=== PATIENT | female | born 1935 | race Caucasian/White ===

== ENCOUNTER 2018-01-11 21:49 | Inpatient (IN) | payer OTHER ==
[~2018-01-11] VITALS: Ht 162.6 cm; Wt 100.5 kg
[~2018-01-11 21:49] MED LIST: BENEFIBER152 GM PO; CALTRATE PLUS1 EACH PO; CENTRUM SILVER1 EAC4 PO; FISH OIL 1,0001 EAC7 PO; FOSAMAX70 MG PO; HYDROCHLOROTHIA25 MG PO; IRON325 M1 PO; LIVALO1 MG PO; LO-DOSE ASPIRIN81 M2 PO; METAMUCIL PLUS1 EACH PO; OMEPRAZOLE40 M1 PO; PRINIVIL5 MG PO; TYLENOL ARTHRI650 MG PO; VITAMIN B-121000 MCG PO; VITAMIN D-32000 UNI2 PO; WELCHOL625 MG PO
[2018-01-12 07:56] VITALS: BP 124/61
[2018-01-12 15:38] VITALS: BP 119/66
[2018-01-12 23:24] VITALS: BP 118/59
[2018-01-13 07:01] LABS: HEMATOCRIT 29.5 % (36.0-46.0); MCV 87.3 FL (83-99)
[2018-01-13 08:13] VITALS: BP 114/59
[2018-01-13 08:17] LABS: CREATININE 0.8 mg/dL (0.6-1.3); GFR ESTIMATE (CALCULATED) > 59 mL/min/; UREA NITROGEN (BUN) 12 mg/dL (9-23)
[2018-01-13 08:27] LABS: CHLORIDE 103 mEq/L (99-109); SODIUM 137 mEq/L (136-147)
[2018-01-13 09:02] LABS: GLUCOSE 113 mg/dL (70-99)
[2018-01-13 16:05] VITALS: BP 138/63
[2018-01-14 00:06] VITALS: BP 125/85
[2018-01-14 05:58] LABS: HEMATOCRIT 32.1 % (36.0-46.0); HEMOGLOBIN 10.8 G/DL (11.9-15.5); MCV 85.8 FL (83-99)
[2018-01-14] MEDS ORDERED: OXYCONTIN10 MG PO (07:31)
[2018-01-14] MEDS ORDERED: TRAMADOL HCL50 MG PO (07:31)
[2018-01-14 08:40] VITALS: BP 110/54
[2018-01-14 16:06] VITALS: BP 120/65
[2018-01-15 00:05] VITALS: BP 116/57
[2018-01-15] MEDS ORDERED: ELIQUIS2.5 MG PO (08:30)
[2018-01-15 08:40] VITALS: BP 126/59
[2018-01-15 11:05] VITALS: BP 109/58
== END 2018-01-15 13:30 | DRG 470 ==
LOC: ENRESERV 21:49 → 2SOUTH 01-12 03:34 → 3EAST 01-12 06:40 → 2SOUTH 01-12 06:40 → ENRESERV 01-12 14:53 → 3EAST 01-12 15:29 → 2SOUTH 01-12 16:14 → 3EAST 01-15 13:30
PROVIDERS: Orthopaedic Surgery
PROC: 0SRC0J9 Replacement of Right Knee Joint with Synthetic Substitute, Cemented, Open Approach (ICD-10-PCS; principal; 2018-01-12)
DX: M17.11 Unilateral primary osteoarthritis, right knee (principal); I10 Essential (primary) hypertension; K21.9 Gastro-esophageal reflux disease without esophagitis; R26.9 Unspecified abnormalities of gait and mobility; M81.0 Age-related osteoporosis without current pathological fracture; K58.9 Irritable bowel syndrome, unspecified; M85.80 Other specified disorders of bone density and structure, unspecified site; M41.9 Scoliosis, unspecified; K44.9 Diaphragmatic hernia without obstruction or gangrene; K59.00 Constipation, unspecified; Z85.820 Personal history of malignant melanoma of skin; Z79.82 Long term (current) use of aspirin
CPT/HCPCS: 71045; 80048; 80048 91; 82948; 85014; 85018; 97530 GO; C1713; J0131; J0690; J1100; J1170; J1885; J2250; J2405; J2710; J2795; J3010; J7050; J7643